=== PATIENT | female | born 1975 | race Caucasian/White ===

== ENCOUNTER 2018-01-26 15:43 | Outpatient (REF) | payer OTHER, SELFPAY ==
[2018-01-27 06:04] LABS: Vitamin D 25 Total 30.5 ng/ml (30-100)
[2018-01-28 11:18] LABS: Parathyroid Hormone,Intact 94 pg/ml (19-88)
== END 2018-01-26 16:03 ==
LOC: NCHCN 15:43
PROVIDERS: PCP Nurse Practitioner Family; Visit Provider Nurse Practitioner Family
DX: E55.9 Vitamin D deficiency, unspecified (principal)
CPT/HCPCS: 82306; 83970

== ENCOUNTER 2019-05-15 09:25 | Outpatient (REF) | payer OTHER, SELFPAY ==
[2019-05-15 21:13] LABS: HCT 43.5 % (36.0-46.0); HGB 14.4 g/dL (12.0-15.5); Mean Corp. HGB Concentration 33.1 g/dL (32.0-36.0); Mean Corpuscular Hemoglobin 27.9 pg (27.0-33.0); Mean Corpuscular Volume 84.1 fL (80-95); Mean Platelet Volume 9.8 fL (8.0-11.0); Platelet Count 342 x1000/uL (130-400); RBC 5.17 m/cumm (4.00-5.20); RBC Distribution Width 13.3 % (11.7-14.6); White Blood Cell Count 7.47 k/cumm (4.4-10.8)
[2019-05-15 21:24] LABS: Iron 53 ug/dL (50-170)
[2019-05-15 21:46] LABS: Calculated LDL 145 mg/dL; Cholesterol 219 mg/dL (<200); Ferritin 64 ng/mL (8-252); HDL Cholesterol 49 mg/dL (40-60); TSH 1.96 uIU/mL (0.36-3.74); Triglyceride 129 mg/dL (<150); Vitamin B12 515 pg/mL (193-986)
[2019-05-15 21:50] LABS: Vitamin D 25 Total 26.9 ng/ml (30-100)
[2019-05-16 14:40] LABS: Hemoglobin A1C 5.4 % (3.8-5.6)
[2019-05-19 11:35] LABS: Folate 6.8 ng/mL (See Note)
== END 2019-05-15 09:45 ==
LOC: NCHCN 09:25
PROVIDERS: PCP Nurse Practitioner Family; Visit Provider Nurse Practitioner Family
DX: N92.0 Excessive and frequent menstruation with regular cycle (principal); K90.9 Intestinal malabsorption, unspecified; F32.9 Major depressive disorder, single episode, unspecified; E66.9 Obesity, unspecified; Z13.1 Encounter for screening for diabetes mellitus; Z13.220 Encounter for screening for lipoid disorders; D52.9 Folate deficiency anemia, unspecified
CPT/HCPCS: 80061; 82306; 85027; 82607; 82728; 82746; 83036; 83540; 84443

== ENCOUNTER 2019-10-30 15:40 | Outpatient (REF) | payer OTHER, SELFPAY ==
--- NOTE | 2019-10-30 15:00 | PAPFT_PTH ---
PATIENT: Amber Sims LOC: [facility] U#:[id number] AGE/SX: 44/F ROOM: RE10/30/[address]: Jocelyn Morrison : 1975 BED: DIS: 10/30/2019 SPEC #: [id number] RECD: 10/31/19 12:45 STATUS: MALENA REYoel #: [id number] LALIT: 10/30/19 15:[address]: Jocelyn Marx DEPT: [facility] Cytology RECD BY: Maryann Rascon ENTERED: 10/31/19 12:45 SP TYPE: PAPFT OTHR DR: Gia Cuevas Tissues: 1 - CX/ENDOCX FOR PAP SMEARS Procedures: PAP THIN PREP/[facility] Screening HPV DNA PROBE Comments: [id number] (CHLAMYDIA/GC)
[2019-11-03 13:54] LABS: Chlamydia Result Negative (Negative); GC Result Negative (Negative)
== END 2019-10-30 16:00 ==
LOC: NCHCN 15:40
PROVIDERS: PCP Nurse Practitioner Family; Visit Provider Nurse Practitioner Family
DX: Z12.4 Encounter for screening for malignant neoplasm of cervix (principal); Z00.00 Encounter for general adult medical examination without abnormal findings; Z11.51 Encounter for screening for human papillomavirus (HPV)
CPT/HCPCS: 87491; 87591; 88142; 87624

== ENCOUNTER 2019-12-12 14:48 | Outpatient (REF) | payer OTHER, SELFPAY ==
[2019-12-12 21:53] LABS: COMMENT (LAB VIEW ONLY) 43.53 mg/dL; Microalb ug/mg Crea 9.4 ug/mg Cr
== END 2019-12-12 15:08 ==
LOC: NCHCN 14:48
PROVIDERS: PCP Nurse Practitioner Family; Visit Provider Nurse Practitioner Family
DX: Z97.5 Presence of (intrauterine) contraceptive device (principal); G43.829 Menstrual migraine, not intractable, without status migrainosus; I10 Essential (primary) hypertension
CPT/HCPCS: 82043; 82570

== ENCOUNTER 2020-01-23 18:46 | Outpatient (REF) | payer OTHER, SELFPAY ==
[2020-01-23 21:01] LABS: Anion Gap 8.9 mmol/L (3-11); BUN 10 mg/dL (7-18); CO2 30.1 mmol/L (21.0-32.0); CREATININE 0.89 mg/dL (0.55-1.02); Calcium 9.3 mg/dL (8.5-10.1); Chloride 100 mmol/L (98-107); Glucose 85 mg/dL (74-106); Potassium 3.4 mmol/L (3.5-5.1); Sodium 139 mmol/L (136-145)
== END 2020-01-23 19:06 ==
LOC: NCHCN 18:46
PROVIDERS: PCP Nurse Practitioner Family; Visit Provider Nurse Practitioner Family
DX: I10 Essential (primary) hypertension (principal); G43.829 Menstrual migraine, not intractable, without status migrainosus; E66.9 Obesity, unspecified
CPT/HCPCS: 80048

== ENCOUNTER 2020-04-16 13:48 | Outpatient (REF) | payer OTHER, SELFPAY ==
[2020-04-19 16:05] LABS: COVID-19 RT-PCR Result NEGATIVE (Negative)
== END 2020-04-16 14:08 ==
LOC: NCHCN 13:48
PROVIDERS: PCP Nurse Practitioner Family; Visit Provider Nurse Practitioner Family
DX: J06.9 Acute upper respiratory infection, unspecified (principal)
CPT/HCPCS: U0003

== ENCOUNTER 2021-02-11 16:04 | Outpatient (REF) | payer OTHER, SELFPAY ==
[2021-02-13 11:29] LABS: COVID-19 RT-PCR UVMMC Result Negative (Negative)
== END 2021-02-11 16:05 | disposition home or self-care (01) ==
LOC: NCHCN 16:04
PROVIDERS: PCP Nurse Practitioner Family; Visit Provider Nurse Practitioner Family
DX: Z20.822 Contact with and (suspected) exposure to COVID-19 (principal); R05.3 Chronic cough
CPT/HCPCS: U0003

== ENCOUNTER 2021-03-13 14:30 | Outpatient (REF) | payer OTHER, SELFPAY ==
[2021-03-13 21:20] LABS: Abs Immature Grans 0.02 10^3/uL (0.0-0.06); Absolute Basophil Count 0.04 10^3/uL (0.0-0.2); Absolute Lymphocyte Count 1.78 10^3/uL (1.2-3.4); Absolute Monocyte Count 0.53 10^3/uL (0.1-0.8); Absolute Neutrophil Count 5.05 10^3/uL (1.2-6.7); Basophils % 0.5; Eosinophils % 2.6; HCT 45.2 % (36.0-46.0); Immature Grans % 0.3; Lymphocytes % 23.4; MCH 28.2 pg (27.0-33.0); MCHC 33.2 % (32.0-36.0); MPV 9.6 fL (8.0-11.0); Neutrophils % 66.2; Nucleated RBC 0 %; Platelet Count 360 10^3/uL (130-400); RBC 5.32 10^6/uL (3.93-5.22); RDW 12.4 % (11.7-14.6); RDW-SD 37.9 fL; WBC 7.62 10^3/uL (4.4-10.8)
[2021-03-13 21:39] LABS: TSH (W/Ref FT4) 1.57 uIU/mL (0.36-3.74)
== END 2021-03-13 14:31 | disposition home or self-care (01) ==
LOC: NCHCN 14:30
PROVIDERS: PCP Nurse Practitioner Family; Visit Provider Nurse Practitioner Family
DX: R53.83 Other fatigue (principal)
CPT/HCPCS: 84443; 85025

== ENCOUNTER 2021-10-08 16:52 | Outpatient (REF) | payer OTHER, SELFPAY ==
[2021-10-08 22:14] LABS: HCT 41.2 % (36.0-46.0); HGB 13.9 g/dL (11.2-15.7); MCH 28.7 pg (27.0-33.0); MCHC 33.7 % (32.0-36.0); MCV 85 fL (80-95); MPV 9.9 fL (8.0-11.0); Platelet Count 346 10^3/uL (130-400); RBC 4.84 10^6/uL (3.93-5.22); RDW 13.2 % (11.7-14.6); RDW-SD 40.6 fL; WBC 8.19 10^3/uL (4.4-10.8)
[2021-10-08 22:22] LABS: Hemoglobin A1C 5.4 % (<5.7)
[2021-10-08 22:28] LABS: Iron 53 ug/dL (50-170); Total Iron Binding Capacity 313 ug/dL (250-450); Transferrin Sat 17 % (15-50)
[2021-10-08 22:49] LABS: ALT 34 U/L (14-59); AST 23 U/L (15-37); Albumin 3.6 g/dL (3.4-5.0); Alkaline Phosphatase 90 U/L (46-116); Anion Gap 7.9 mmol/L (3-11); BUN 9 mg/dL (7-18); Bilirubin, Total 0.6 mg/dL (0.2-1.0); CO2 30.1 mmol/L (21.0-32.0); CREATININE 0.9 mg/dL (0.55-1.02); Calcium 8.7 mg/dL (8.5-10.1); Calculated LDL 122 mg/dL (<100); Chloride 102 mmol/L (98-107); Cholesterol 202 mg/dL (<200); Ferritin 90 ng/mL (8-252); Glucose 87 mg/dL (74-106); HDL Cholesterol 46 mg/dL (40-60); Potassium 3.3 mmol/L (3.5-5.1); Sodium 140 mmol/L (136-145); TSH 4.06 uIU/mL (0.36-3.74); Total Protein 6.9 g/dL (6.4-8.2); Triglyceride 170 mg/dL (<150); Vitamin B12 538 pg/mL (193-986)
[2021-10-09 06:49] LABS: Vitamin D 25 Total 29.8 ng/mL (30-100)
== END 2021-10-08 16:53 | disposition home or self-care (01) ==
LOC: NCHCN 16:52
PROVIDERS: PCP Nurse Practitioner Family; Visit Provider Nurse Practitioner Family
DX: I10 Essential (primary) hypertension (principal); E61.1 Iron deficiency; D52.9 Folate deficiency anemia, unspecified; E55.9 Vitamin D deficiency, unspecified; R79.89 Other specified abnormal findings of blood chemistry; K90.89 Other intestinal malabsorption; Z13.220 Encounter for screening for lipoid disorders
CPT/HCPCS: 80053; 80061; 82306; 85027; 82607; 82728; 83036; 83540; 83550; 84443

== ENCOUNTER 2021-11-05 15:38 | Outpatient (REF) | payer OTHER, SELFPAY ==
[2021-11-05 17:25] LABS: TSH (W/Ref FT4) 1.94 uIU/mL (0.36-3.74)
[2021-11-05 23:04] LABS: Thyroglobulin Antibody <15 U/mL (<=60)
[2021-11-06 10:09] LABS: Hepatitis C Ab w Rflx HCV PCR Negative (Negative)
[2021-11-06 10:15] LABS: HIV-1/2 Ag & Ab Screen Negative (Negative)
[2021-11-07 23:21] LABS: Thyroperoxidase Antibody 36 U/mL (<=60)
== END 2021-11-05 15:39 | disposition home or self-care (01) ==
LOC: NCHCN 15:38
PROVIDERS: PCP Nurse Practitioner Family; Visit Provider Nurse Practitioner Family
DX: R94.6 Abnormal results of thyroid function studies (principal); Z11.3 Encounter for screening for infections with a predominantly sexual mode of transmission; Z11.59 Encounter for screening for other viral diseases; Z11.4 Encounter for screening for human immunodeficiency virus [HIV]
CPT/HCPCS: 86803; 87389; 84443; 86376; 86800

== ENCOUNTER 2023-02-23 09:56 | Outpatient (REF) | payer OTHER, SELFPAY ==
[2023-02-23 15:35] LABS: HCT 41.4 % (36.0-46.0); HGB 13.5 g/dL (11.2-15.7); MCH 28.4 pg (27.0-33.0); MCHC 32.6 % (32.0-36.0); MCV 87 fL (80-95); MPV 9.6 fL (8.0-11.0); Platelet Count 319 10^3/uL (130-400); RBC 4.76 10^6/uL (3.93-5.22); RDW 12.5 % (11.7-14.6); RDW-SD 39.8 fL; WBC 6.96 10^3/uL (4.4-10.8)
[2023-02-23 15:51] LABS: Iron 61 ug/dL (50-170); Total Iron Binding Capacity 325 ug/dL (250-450); Transferrin Sat 19 % (15-50)
[2023-02-23 16:11] LABS: Vitamin D 25 Total 51.7 ng/mL (30-100)
[2023-02-23 16:22] LABS: ALT 21 U/L (14-59); AST 21 U/L (15-37); Albumin 3.4 g/dL (3.4-5.0); Alkaline Phosphatase 83 U/L (46-116); Anion Gap 7.4 mmol/L (3-11); BUN 11 mg/dL (7-18); Bilirubin, Total 0.7 mg/dL (0.2-1.0); CO2 27.6 mmol/L (21.0-32.0); CREATININE 0.9 mg/dL (0.55-1.02); Calcium 9.2 mg/dL (8.5-10.1); Chloride 103 mmol/L (98-107); Estimated GFR 78.37 (mL/min/1.73m2); Glucose 92 mg/dL (74-106); Potassium 3.6 mmol/L (3.5-5.1); Sodium 138 mmol/L (136-145); TSH 1.29 uIU/mL (0.36-3.74); Total Protein 7.2 g/dL (6.4-8.2); Vitamin B12 321 pg/mL (193-986)
== END 2023-02-23 09:57 | disposition home or self-care (01) ==
LOC: NCHCN 09:56
PROVIDERS: PCP Nurse Practitioner Family; Visit Provider Nurse Practitioner Family
DX: I10 Essential (primary) hypertension (principal); D52.9 Folate deficiency anemia, unspecified; E87.6 Hypokalemia; E61.1 Iron deficiency; E55.9 Vitamin D deficiency, unspecified; E66.01 Morbid (severe) obesity due to excess calories
CPT/HCPCS: 80053; 82306; 85027; 82607; 83540; 83550; 84443

== ENCOUNTER 2023-11-09 15:05 | Outpatient (REF) | payer OTHER, SELFPAY ==
[2023-11-09 21:30] LABS: HCT 42.4 % (36.0-46.0); MCH 29.2 pg (27.0-33.0); MCV 88 fL (80-95); MPV 9.6 fL (8.0-11.0); Platelet Count 311 10^3/uL (130-400); RDW 12.3 % (11.7-14.6); RDW-SD 39.8 fL; WBC 6.41 10^3/uL (4.4-10.8)
[2023-11-09 21:45] LABS: Iron 73 ug/dL (50-170); Total Iron Binding Capacity 311 ug/dL (250-450); Transferrin Sat 23 % (15-50)
[2023-11-09 22:01] LABS: Hemoglobin A1C 5.2 % (<5.7)
[2023-11-09 22:11] LABS: ALT 24 U/L (14-59); AST 21 U/L (15-37); Albumin 3.6 g/dL (3.4-5.0); Alkaline Phosphatase 88 U/L (46-116); Anion Gap 6.5 mmol/L (3-11); BUN 12 mg/dL (7-18); CO2 30.5 mmol/L (21.0-32.0); Calcium 9.2 mg/dL (8.5-10.1); Calculated LDL 99 mg/dL (<100); Chloride 103 mmol/L (98-107); Cholesterol 173 mg/dL (<200); Glucose 82 mg/dL (74-106); HDL Cholesterol 49 mg/dL (40-60); Potassium 3.4 mmol/L (3.5-5.1); Sodium 140 mmol/L (136-145); Total Protein 7.3 g/dL (6.4-8.2); Triglyceride 129 mg/dL (<150); Vitamin B12 1098 pg/mL (193-986); Vitamin D 25 Total 51.8 ng/mL (30-100)
[2023-11-09 22:30] LABS: CREATININE 0.9 mg/dL (0.55-1.02); Estimated GFR 77.88 (mL/min/1.73m2); TSH 1.04 uIU/Ml (0.36-3.74)
== END 2023-11-09 15:06 | disposition home or self-care (01) ==
LOC: NCHCN 15:05
PROVIDERS: PCP Nurse Practitioner Family; Visit Provider Nurse Practitioner Family
DX: I10 Essential (primary) hypertension (principal); K90.9 Intestinal malabsorption, unspecified; E66.01 Morbid (severe) obesity due to excess calories; Z13.1 Encounter for screening for diabetes mellitus
CPT/HCPCS: 80053; 80061; 82306; 85027; 82607; 83036; 83540; 83550; 84443

== ENCOUNTER 2024-06-22 13:48 | Outpatient (REF) | payer OTHER, SELFPAY ==
[2024-06-22 21:54] LABS: HCT 42.4 % (36.0-46.0); HGB 14.2 g/dL (11.2-15.7); MCH 29.4 pg (27.0-33.0); MCHC 33.5 % (32.0-36.0); MCV 88 fL (80-95); MPV 9.7 fL (8.0-11.0); Platelet Count 295 10^3/uL (130-400); RBC 4.83 10^6/uL (3.93-5.22); RDW-SD 38.7 fL; WBC 7.36 10^3/uL (4.4-10.8)
[2024-06-22 22:11] LABS: Hemoglobin A1C 5.4 % (<5.7)
[2024-06-22 23:23] LABS: Iron 55 ug/dL (50-170); Total Iron Binding Capacity 304 ug/dL (250-450)
[2024-06-22 23:24] LABS: ALT 29 U/L (14-59); AST 22 U/L (15-37); Albumin 3.6 g/dL (3.4-5.0); Alkaline Phosphatase 92 U/L (46-116); BUN 12 mg/dL (7-18); Bilirubin, Total 0.66 mg/dL (0.2-1.0); CREATININE 0.9 mg/dL (0.55-1.02); Calcium 9.6 mg/dL (8.5-10.1); Chloride 105 mmol/L (98-107); Estimated GFR 77.88 (mL/min/1.73m2); Glucose 88 mg/dL (74-106); Potassium 3.6 mmol/L (3.5-5.1); Sodium 141 mmol/L (136-145); TSH 1.95 uIU/mL (0.36-3.74); Total Protein 7.6 g/dL (6.4-8.2); Vitamin B12 854 pg/mL (193-986); Vitamin D 25 Total 62.1 ng/mL (30-100)
== END 2024-06-22 13:49 | disposition home or self-care (01) ==
LOC: NCHCN 13:48
PROVIDERS: PCP Nurse Practitioner Family; Visit Provider Nurse Practitioner Family
DX: D52.9 Folate deficiency anemia, unspecified (principal); E61.1 Iron deficiency; Z13.1 Encounter for screening for diabetes mellitus; E55.9 Vitamin D deficiency, unspecified
CPT/HCPCS: 80053; 82306; 85027; 82607; 83036; 83540; 83550; 84443

== ENCOUNTER 2024-12-19 13:16 | Outpatient (REF) | payer OTHER, SELFPAY ==
--- NOTE | 2024-12-19 08:30 | PAPFT_PTH ---
PATIENT: Amber Sims LOC: [facility]#:[id number] AGE/SX: 49/F ROOM: RE12/19/[address]: Jocelyn Morrison : 1975 BED: DIS: 12/19/2024 SPEC #: [id number] RECD: 12/19/24 18:33 STATUS: JOSEBrandy REYoel #: [id number] LALIT: 12/19/24 08:[address]: Jocelyn Marx DEPT: [facility] Cytology RECD BY: Maryann Rascon ENTERED: 12/19/24 18:33 SP TYPE: PAPFT OTHR DR: Gia Cuevas Tissues: 1 - CX/ENDOCX FOR PAP SMEARS Procedures: PAP THIN PREP/[facility] Screening HPV DNA PROBE Comments: [id number] (HPV 16 & 18/45) (CHLAMYDIA/GC)
[2024-12-20 11:54] LABS: Chlamydia Result Negative (Negative); GC Result Negative (Negative)
== END 2024-12-19 13:17 | disposition home or self-care (01) ==
LOC: NCHCN 13:16
PROVIDERS: PCP Nurse Practitioner Family; Visit Provider Nurse Practitioner Family
DX: Z12.4 Encounter for screening for malignant neoplasm of cervix (principal); Z00.00 Encounter for general adult medical examination without abnormal findings
CPT/HCPCS: 87491; 87591; 88142; 87624